=== PATIENT | male | born 1980 | race Caucasian/White ===

== ENCOUNTER 2020-10-17 22:12 | Emergency (ER) | payer MEDICAID ==
[~2020-10-17] VITALS: Ht 182.9 cm; Wt 81.6 kg
--- NOTE | 2020-10-17 22:12 | NUR ---
PT BIBA TO BED 08.
[2020-10-17 22:16] VITALS: BP 144/91
--- NOTE | 2020-10-17 22:16 | NUR ---
PT BIBA FOR C/O WEAKNESS X 1 HOUR AND COUGH X 1 WEEK. A & O X4. PATIENT REPORTS FEVER AT HOME, CURRENT ORAL TEMP 98.8. VSS. PATIENT AMBULATORY. PATIENT REPORTS HE HAS BEEN FEELING WEAK THE LAST HOUR, DENIES FALLS. PATIENT ALSO REPORTS PRODUCTIVE COUGH X 1 WEEK WITH "A LOT OF MUCUS." PATIENT ALSO REPORTS HE FEELS ANXIOUS. PER [facility], BLOOD SUGAR 214. SKIN IS WARM, DRY AND INTACT. PATIENT DENIES PAIN AT THIS TIME. PATIENT DENIES CP, SOB, FEVER, CHILLS. PATIENT DENIES N/V/D. PATIENT PLACED IN GOWN AND CONNECTED TO MONITOR. HOB ELEVATED FOR COMFORT. SEE COMPLETE ASSESSMENT FOR FURTHER DETAILS. MED HX: DM, HTN ALLERGIES: NKA
--- NOTE | 2020-10-17 23:17 | NUR ---
ERMD EVUALTING PT AT BEDSIDE.
--- NOTE | 2020-10-17 23:18 | NUR ---
ERMD AT BEDSIDE.
--- NOTE | 2020-10-17 23:25 | NUR ---
VERBAL ORDER FROM [facility]ADI RECIEVED FOR ACCUCHECK.
[2020-10-18 00:14] VITALS: BP 154/94
--- NOTE | 2020-10-18 00:14 | NUR ---
Patient discharged with v/s stable. Written and verbal after care instructions given and explained. Patient verbalized understanding. Ambulatory with steady gait. All questions addressed prior to discharge. Advised to follow up with PMD.
== END 2020-10-18 00:14 | disposition home or self-care (01) ==
LOC: MED 22:12 → EDBD 22:12 → MED 10-18 00:14
DX: R25.2 Cramp and spasm (principal); E11.65 Type 2 diabetes mellitus with hyperglycemia; I10 Essential (primary) hypertension
CPT/HCPCS: 99282

== ENCOUNTER 2021-08-10 13:58 | Emergency (ER) | payer MEDICAID ==
[~2021-08-10] VITALS: Ht 160 cm; Wt 93.0 kg
[2021-08-10 14:01] VITALS: BP 155/81
[2021-08-10] MEDS ORDERED: CEPH-588 PO (14:09)
[2021-08-10] MEDS ORDERED: NAPR-54 PO (14:09)
[2021-08-10 14:18] VITALS: BP 155/81
--- NOTE | 2021-08-10 14:18 | NUR ---
Patient discharged with v/s stable. Written and verbal after care instructions ABOUT CELLULITIS given and explained. Patient alert, oriented and verbalized understanding of instructions. Ambulatory with steady gait. All questions addressed prior to discharge. ID band removed. Patient advised to follow up with PMD. Rx of KEFLEX AND NAPROSYN given. Patient educated on indication of medication including possible reaction and side effects. Opportunity to ask questions provided and answered.
--- NOTE | 2021-08-10 14:18 | NUR ---
NO NURSING INTERVENTIONS PROVIDED
== END 2021-08-10 14:18 | disposition home or self-care (01) ==
LOC: MED 13:58
DX: L03.113 Cellulitis of right upper limb (principal); I10 Essential (primary) hypertension; F03.90 Unspecified dementia, unspecified severity, without behavioral disturbance, psychotic disturbance, mood disturbance, and anxiety; Z79.899 Other long term (current) drug therapy
CPT/HCPCS: 99283